=== PATIENT | female | born 1965 | race Caucasian/White ===

== ENCOUNTER 2021-02-11 11:43 | Emergency (ER) | payer BC ==
[~2021-02-11] VITALS: Ht 162.6 cm; Wt 122.3 kg
[2021-02-11 12:19] VITALS: BP 125/71
--- NOTE | 2021-02-11 12:26 | PHYS DOC ---
Adult General Chief Complaint Chief Complaint: SYNCOPE HPI HPI Patient is a 55-year-old female presents to the emergency department with chief complaint of "I passed out while at Dr. Wilosn's office and he told me I should go to the ER to get checked out "patient states Dr. Wilson told her she was unconscious for approximately 3 seconds. Patient states she was in a sitting position during a consultation with Dr. Wilson when she had a sudden onset of dizziness and then had a syncopal episode. Patient states she woke up this morning feeling "achy headache stomach ". Patient states she is also feeling a little more hot and sweaty than normal today. Denies diaphoretic episode. Perry antoine states she also feels hot and thirsty. Patient reports "it feels like a pit in my stomach ", denies abdominal pain. Patient reports some constipation lately, denies seeing blood in her stool, denies diarrhea, denies vomiting. Patient denies any urinary tract infection type signs and symptoms, denies seeing any blood in her urine. Patient reports "some nausea ". Patient states she has passed out in the past approximately 20 years ago, has not had any syncopal episodes since. Patient states she associates her syncopal episode 20 years ago to an acute back pain problem that has resolved since. Patient reports a pressure headache rating a 5/10 pain. Patient states she has frequent pressure headaches, woke up with this headache, took 2 500 mg Tylenol this morning without any change in her pain. Patient states she usually takes Tylenol for headaches and does not get any relief and usually waits for the headache to go away on its own. Patient denies numbness or tingling to her extremities, denies any weight gain or weight loss, denies swelling to her extremities. Patient denies chest pain or chest congestion, however reports a heaviness in her chest that has been going on for over a year, has been worked up and told she had GERD and was started on pantoprazole 40 mg, patient states it has not really helped. Patient reports a sinus pressure, denies nasal drainage, denies cough or sore throat, denies ear pains. Patient reports a history of vertigo, states I have crystals in my ears ", states she was worked up by a ENT specialist. Patient reports periods of dizziness with position changes for "quite some time now ". Patient states she does not take any medications for her dizziness. Patient states she was seen in Dr. Wilson's office this morning for a GERD and hiatal hernia consult, was given a prescription for Protonix 40 mg, recommended diet change, recommended referral for a contract design agent. 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 Patient denies allergies to medications, reports home prescription medications as triamterene/hydrochlorothiazide 37.5, pantoprazole 40 mg, fenofibrate 160 mg, atorvastatin 20 mg, carvedilol 12.5 mg, calcium supplement 600 mg, vitamin D3 5 mcg. Patient denies any other physical complaints or physical concerns. (PRISCILA DANG APRN) Review of Systems Review of Systems Constitutional: Denies fever or chills [] Eyes: Denies change in visual acuity, redness, or eye pain [] HENT: Denies nasal congestion or sore throat [] Respiratory: Denies cough or shortness of breath [] Cardiovascular: No additional information not addressed in HPI [] GI: Denies abdominal pain, nausea, vomiting, bloody stools or diarrhea [] : Denies dysuria or hematuria [] Musculoskeletal: Denies back pain or joint pain [] Integument: Denies rash or skin lesions [] Neurologic: Denies headache, focal weakness or sensory changes [] Endocrine: Denies polyuria or polydipsia [] All other systems were reviewed and found to be within normal limits, except as documented in this note. (PRISCILA DANG APRN) Allergies Allergies Allergies Coded Allergies Type Severity Reaction Last Updated Verified No Known Drug Allergies 02/11/21 No (PRISCILA DANG APRN) Physical Exam Physical Exam Constitutional: Well developed, well nourished, no acute distress, non-toxic appearance. 55-year-old female in no apparent distress. HENT: Normocephalic, atraumatic, bilateral external ears normal, oropharynx moist, no oral exudates, nose normal. Bilateral nasal turbinates nonerythematous within normal limits no drainage appreciated, oropharynx within normal limits no infectious process appreciated, no swelling or erythema. No lymphadenopathy of the head or neck appreciated. Patient is speaking in normal voice tones, no trismus, no drooling. Complained of pain with palpation over frontal and maxillary sinus areas of the face. Eyes: PERRLA, EOMI, conjunctiva normal, no discharge. Neck: Normal range of motion, no tenderness, supple, no stridor. No meningismus signs, no nuchal rigidity. Cardiovascular:Heart rate regular rhythm, no murmur, heart sounds S1-S2 to aus cultation. Lungs & Thorax: Bilateral breath sounds clear to auscultation no adventitious lung sounds appreciated, no pain to palpation of the anterior thorax, no bruising, no crepitus appreciated. Abdomen: Bowel sounds normal, soft, tenderness to palpation at epigastric area, no masses, no pulsatile masses. No bruising or areas of ecchymosis of the abdomen appreciated. Skin: Warm, dry, no erythema, no rash. Back: No tenderness, no CVA tenderness. Extremities: No tenderness, no cyanosis, no clubbing, ROM intact, no edema. D istal cap refill less than 2 seconds. +2/4 pulses. Neurologic: Alert and oriented X 3, normal motor function, normal sensory function, no focal deficits noted. Psychologic: Affect normal, judgement normal, mood normal. (PRISCILA DANG APRN) Current Patient Data Vital Signs Vital Signs Date Time Temp Pulse Resp B/P (MAP) Pulse Ox O2 Delivery O2 Flow Rate FiO2 02/11/21 12:19 98.3 67 18 125/71 (89) 97 Room Air (PRISCILA DANG APRN) EKG EKG EKG performed at 1152 by house respiratory therapy staff shows a normal sinus rhythm without ectopy, [place] interval 0.146, QTc interval 0.453, no acute STEMI, no ACS, no acute ischemia appreciated, noted leftward axis abnormality, EKG interpreted by ED attending physician Dr. Gamboa. (PRISCILA DANG APRN) Radiology/Procedures Radiology/Procedures [] (PRISCILA DANG APRN) Radiology/Procedures PROCEDURE: CHEST PA & LATERAL EXAM: Chest, 2 views. HISTORY: Syncope. COMPARISON: None. FINDINGS: 2 views of the chest are obtained. There is no infiltrate, pleural effusion or pneumothorax. The heart is normal in size. IMPRESSION: No acute pulmonary finding. Electronically signed by: Linda Son MD (02/11/2021 12:57 PM) [id number] PROCEDURE: CT HEAD WO CONTRAST EXAM: Head CT without contrast. HISTORY: Syncope. TECHNIQUE: Computed tomographic images of the head were obtained without contrast. *One or more of the following individualized dose reduction techniques were utilized for this examination: 1. Automated exposure control. 2. Adjustment of the mA and/or kV according to patient size. 3. Use of iterative reconstruction technique. COMPARISON: None. FINDINGS: There is no acute or subacute extra-axial or intraparenchymal hemorrhage. There is no mass effect or midline shift. There is no hydrocephalus. The weeks-white matter differentiation pattern is intact. The visualized portions of the orbits, paranasal sinuses and mastoid air cells a re unremarkable. No suspicious calvarial lesion is seen. IMPRESSION: No acute intracranial findings. Electronically signed by: Linda Son MD (02/11/2021 12:58 PM) [id number] (PRISCILA GAMBOA DO) Heart Score C/O Chest Pain: Yes HEART Score for Chest Pain: HEART Score for Chest Pain Response (Comments) Value History Slighlty/Non-Suspicious 0 ECG Normal 0 Age >45 - < 65 1 Risk Factors 1 or 2 Risk Factors 1 Troponin < Normal Limit 0 Total 2 Risk Factors: Risk Factors: DM, Current or recent (<one month) smoker, HTN, HLP, family history of CAD, obesity. Risk Scores: Risk Factors: DM, Current or recent (<one month) smoker, HTN, HLP, family history of CAD, obesity. (PRISCILA DANG APRN) Course & Med Decision Making Course & Med Decision Making Pertinent Labs and Imaging studies reviewed. (See chart for details) 55-year-old female, vital signs reviewed, presents emergency department for evaluation of a syncopal episode during a GI consult with Dr. Wilson this morning. Physical examination unremarkable, related to patient's syncopal episode will order cardiopulmonary work-up, patient is complaining of epigastric pain, will order lipase, patient does have history of vertigo, and indicates complaints consistent with postural hypotension, will order orthostatic blood pressures, saline lock, 1 L normal saline, 4 mg IV Zofran 4 reported nausea, urinalysis assay, CT head without contrast. Patient's labs unremarkable, the patient was not orthostatic and did not complain of any orthostatic type complaints during test, CT head without contrast without concerning findings, chest x-ray without concerning findings per house radiologist interpretation, the patient's heart score equals 2. Patient's complaint symptoms of headaches, nausea, indigestion, stuffy and runny nose likely related to fenofibrate medication. Upon reevaluation of the patient, the patient remains nontoxic in appearance, in good spirits, states she feels much better, states her headache is resolved, denies any symptoms at this time. Discussed with patient side effects of fenofibrate medication, discussed with patient consulting with her primary care physician to reevaluate fenofibrate medication dosing and ongoing management related to ongoing side effects. Discussed with patient weighing the benefits versus risks of discontinuing this medication. Discussed with patient to continue taking all home meds until reevaluated by her primary care physician. Discussed with patient admission to the hospital for observation of syncope, however with patient's symptoms resolved and negative work-up in the ED today, the patient and I made a joint decision to discharge to home, strict return to emergency department for returning symptoms, additional syncopal episode, chest pain, shortness of breath, increased pain. Patient states she feels much better and is comfortable going home and monitoring for ongoing symptoms. Patient gave verbal understanding of discharge home instructions, follow-up with PCP tomorrow, keep cardiology appointment soon, patient is currently awaiting call from office to set up appointment, return to ER precautions and concerns, patient was discharged home without incident. (PRISCILA DANG APRN) Dragon Disclaimer Dragon Disclaimer This electronic medical record was generated, in whole or in part, using a voice recognition dictation system. (PRISCILA DANG APRN) Departure Departure: Impression: Primary Impression: Episode of syncope Disposition: 01 HOME / SELF CARE / HOMELESS Condition: GOOD Referrals: LAINA CRAMER MD (PCP) Patient Instructions: Syncope Additional Instructions: You are seen today in the emergency department for a syncopal episode. A extensive cardiorespiratory work-up and CT of your head was performed, there w ere no concerning findings that would require immediate hospitalization or evaluation by a contract design agent, lens inspector, her neurologist, or neurosurgeon. I offered admission to the hospital, you and I made a joint decision related to your symptoms resolving and your labs, x-rays, CAT scans were within normal limits that you feel safe going home and monitoring your symptoms, we discussed strict return to the emergency department precautions, we also discussed you following up with your primary care physician to evaluate your ongoing and chronic symptoms versus your current medications and side effects for consideration of possible medication regimen change. Please keep your appointment with your contract design agent when it is made, return to the emergency department immediately for worsening symptoms or other concerns. EMERGENCY DEPARTMENT GENERAL DISCHARGE INSTRUCTIONS Thank you for coming to [facility] (ED) today and trusting us with you care. We trust that you had a positivie experience in our Emergency Department. If you wish to speak to the department management, you may call the director at [phone]. YOUR FOLLOW UP INSTRUCTIONS ARE FOLLOWS: 1. Do you have a private Doctor? If you do not have a private doctor, please ask for a resource list of physicians or clinics that may be able to assist you with follow up care. 2. The Emergency Physician has interpreted your x-rays. The X-Ray specialist will also review them. If there is a change in the findings, you will be notified in 48 hours when at all possible. 3. A lab test or culture has been done, your results will be reviewed and you will be notified if you need a change in treatment. ADDITIONAL INSTRUCTIONS AND INFORMATION: 1. Your care today has been supervised by a physician who is specially trained in emergency care. Many problems require more than one evaluation for a complete diagnosis and treatment. We recommend that you schedule your follow up appointment as recommended to ensure complete treatment of you illness or injury. If you are unable to obtain follow up care and continue to have a problem, or if your condition worsens, we recommend that you return to the ED. 2. We are not able to safely determine your condition over the phone nor are we able to give sound medical advice over the phone. For these safety reasons, if you call for medical advice we will ask you to come to the ED for further evaluation. 3. If you have any questions regarding these discharge instructions please call the ED at [phone]. SAFETY INFORMATION: In the interest of safety, wellness, and injury prevention; we encourage you to wear your sealbelt, if you smoke; quite smoking, and we encourage family to use a protective helmet for bicycling and other sporting events that present an increased risk for head injury. IF YOUR SYMPTOMS WORSEN OR NEW SYMPTOMS DEVELOP, OR YOU HAVE CONCERNS ABOUT YOUR CONDITION; OR IF YOUR CONDITION WORSENS WHILE YOU ARE WAITING FOR YOUR FOLLOW UP APPOINTMENT; EITHER CONTACT YOUR PRIMARY CARE DOCTOR, THE PHYSICIAN WHOSE NAME AND NUMBER YOU WERE GIVEN, OR RETURN TO THE ED IMMEDIATELY. Attending Signature Attending Signature I have reviewed the PA/BACKUP OPERATOR's note and plan of care. I was available for consultat ion as needed during the patient's visit in the emergency department. I agree with the clinical impression, plan, and disposition. (PRISCILA GAMBOA DO) Problem Qualifiers Primary Impression: Episode of syncope Syncope type: unspecified Qualified Codes: R55 - Syncope and collapse PRISCILA DANG APRN February 11, 2021 12:26 PRISCILA GAMBOA DO February 11, 2021 14:50
[2021-02-11] MEDS ORDERED: IV NORMAL SALINE 1,000ML 1,000 ML IV ONE (12:30)
[2021-02-11] MEDS ORDERED: ONDANSETRON PF 4 MG/2 ML VIAL. IVP ONE (12:30)
[2021-02-11 12:37] LABS: BASO # 0.1 x10^3/uL (0.0-0.2); BASO % 1 % (0-3); EOS # 0.1 x10^3/uL (0.0-0.7); EOS % 2 % (0-3); HEMATOCRIT 37.3 % (36.0-47.0); HEMOGLOBIN 12.7 g/dL (12.0-15.5); LYMPH # 1.7 x10^3/uL (1.0-4.8); LYMPH % 22 % (24-48); MEAN CORPUSCULAR HEMOGLOBIN 29 pg (25-35); MEAN CORPUSCULAR HGB CONC 34 g/dL (31-37); MEAN CORPUSCULAR VOLUME 86 fL (79-100); MONO # 0.6 x10^3/uL (0.0-1.1); MONO % 8 % (0-9); NEUT # 5.3 x10^3uL (1.8-7.7); NEUT % 67 % (31-73); PLATELET COUNT 349 x10^3/uL (140-400); RED BLOOD COUNT 4.37 x10^6/uL (3.50-5.40); RED CELL DISTRIBUTION WIDTH 13.6 % (11.5-14.5); WHITE BLOOD COUNT 7.8 x10^3/uL (4.0-11.0)
--- NOTE | 2021-02-11 12:39 | EKG ---
[address] [address] Test Date: 2021-02-11 Test Time: 11:52:51 Pat Name: CONSTANTINO PERAZA Department: Room: Gender: F Assistant Head Cashier: JOHNATAN : 1965 Requested By: PRISCILA DANG Order Number: [id number] Reading MD: Measurements Intervals [place] Rate: 74 P: 49 MN: 146 QRS: -19 QRSD: 96 T: 29 QT: 408 QTc: 453 Interpretive Statements SINUS RHYTHM LEFT ATRIAL ABNORMALITY LEFTWARD AXIS R-S TRANSITION ZONE IN V LEADS DISPLACED TO THE LEFT ABNORMAL ECG RI6.02 No previous ECG available for comparison
[2021-02-11 12:40] LABS: CALCIUM 9.6 mg/dL (8.5-10.1); CREATININE 0.9 mg/dL (0.6-1.0); GFR 64.5; POTASSIUM 3.8 mmol/L (3.5-5.1)
[2021-02-11 12:43] LABS: ALBUMIN 3.9 g/dL (3.4-5.0); DIRECT BILIRUBIN 0.1 mg/dL (0.0-0.2); TOTAL BILIRUBIN 0.4 mg/dL (0.2-1.0); TOTAL PROTEIN 6.9 g/dL (6.4-8.2)
[2021-02-11 12:56] LABS: ALBUMIN 3.9 g/dL (3.4-5.0); ALBUMIN/GLOBULIN RATIO 1.3 (1.0-1.7); PHOSPHORUS 4.8 mg/dL (2.6-4.7); TOTAL BILIRUBIN 0.4 mg/dL (0.2-1.0); TOTAL PROTEIN 6.8 g/dL (6.4-8.2)
--- NOTE | 2021-02-11 12:59 | RAD ---
EXAM: Chest, 2 views. HISTORY: Syncope. COMPARISON: None. FINDINGS: 2 views of the chest are obtained. There is no infiltrate, pleural effusion or pneumothorax . The heart is normal in size. IMPRESSION: No acute pulmonary finding. Electronically signed by: Linda Son MD (02/11/2021 12:57 PM) [id number]
--- NOTE | 2021-02-11 13:00 | RAD ---
EXAM: Head CT without contrast. HISTORY: Syncope. TECHNIQUE: Computed tomographic images of the head were obtained without contrast. *One or more of the following individualized dose reduction techniques were utilized for this examina tion: 1. Automated exposure control. 2. Adjustment of the mA and/or kV according to patient size. 3. Use of iterative reconstruction technique. COMPARISON: None. FINDINGS: There is no acute or subacute extra-axial or intraparenchymal hemorrhage. There is no mass effect or midline shift. There is no hydrocephalus. The weeks-white matter differentiation pattern is intact. The visualized portions of the orbits, paranasal sinuses and mastoid air cells are unremarkable. No s uspicious calvarial lesion is seen. IMPRESSION: No acute intracranial findings. Electronically signed by: Linda Son MD (02/11/2021 12:58 PM) [id number]
[2021-02-11 13:35] LABS: BILIRUBIN,URINE NEG (NEG); CLARITY,URINE HAZY; COLOR,URINE YELLOW; GLUCOSE,URINE NEG (NEG); UROBILINOGEN,URINE 0.2 mg/dL (0.2 mg/dL)
[2021-02-11 13:36] LABS: AMORPHOUS SEDIMENT,UR PRESENT /HPF; BACTERIA,URINE 0 /HPF (0-FEW); NITRITE,URINE NEG (NEG); RBC,URINE 0 /HPF (0-2); SQUAMOUS EPITHELIAL CELL,UR FEW /LPF
== END 2021-02-11 13:51 | disposition home or self-care (01) ==
LOC: ER 11:43
DX: R55 Syncope and collapse (principal); R42 Dizziness and giddiness
CPT/HCPCS: 36415; 70450; 71046; 80053; 80076; 81001; 82553; 83690; 83735; 84100; 84484; 85025; 87086; 93005; 96361; 96374; 99285; J2405; J7030; 87147

== ENCOUNTER → 2021-04-03 | Outpatient (CLI) | payer BC ==
--- NOTE | 2021-04-03 16:14 | RAD ---
EXAMINATION: XR CHEST 2V CLINICAL HISTORY: Chest pain EXAM DATE/TIME: 04/03/2021 11:35 AM COMPARISON: 02/11/2021 FINDINGS: Lines, Tubes, and Devices: None. Cardiomediastinal Silhouette: Normal heart size. Aortic atherosclerotic calcification. Lungs and Pleura: No evidence of focal airspace consolidation or pleural effusion. Pulmonary vasculat ure unremarkable. Bones and Soft Tissues: Degenerative changes of the thoracic spine. IMPRESSION: No evidence of acute cardiopulmonary abnormality or significant interval change. Electronically signed by: Robin Hill DO (04/03/2021 4:11 PM) [id number]
== END ==
LOC: RAD 11:20
PROVIDERS: ATTEND Internal Medicine Pulmonary Disease
DX: R05 Cough (principal); I70.0 Atherosclerosis of aorta; M47.814 Spondylosis without myelopathy or radiculopathy, thoracic region
CPT/HCPCS: 71046